=== PATIENT | female | born 1995 | race Caucasian/White ===

== ENCOUNTER 2020-03-17 22:03 | Emergency (ER) | payer OTHER ==
[~2020-03-17] VITALS: Ht 157.5 cm; Wt 95.3 kg
[2020-03-17] MEDS ORDERED: FOLIC ACID1 MG PO (22:13)
[2020-03-17] MEDS ORDERED: METHOTREXATE 22.5 M1 PO (22:14)
[2020-03-17] MEDS ORDERED: SERTRALINE HCL100 MG PO (22:14)
[2020-03-17] MEDS ORDERED: HYDROXYZINE HCL25 M2 (22:15)
[2020-03-17] MEDS ORDERED: TRAZODONE HCL100 MG PO (22:15)
[2020-03-17] MEDS ORDERED: EPIPEN0.3 MG/0.1 IM (22:15)
[2020-03-17 23:08] LABS: URINE BILIRUBIN NEGATIVE (Negative); URINE BLOOD NEGATIVE (Negative); URINE CLARITY CLEAR; URINE COLOR YELLOW; URINE GLUCOSE-RANDOM* NEGATIVE (Negative); URINE KETONES NEGATIVE (Negative); URINE LEUKOCYTES-REFLEX NEGATIVE (Negative); URINE NITRITE-REFLEX NEGATIVE (Negative); URINE PROTEIN (DIPSTICK) NEGATIVE (Negative); URINE UROBILINOGEN 0.2 E.U./dl (0.2-1.0)
[2020-03-17 23:08] LABS: BASOPHILS 0.6 % (0.0-2.0); EOSINOPHILS 1.5 % (0.0-3.0); HEMATOCRIT 41.1 % (37.0-47.0); HEMOGLOBIN 13.5 gm/dL (12.0-15.0); LYMPHOCYTES 28.1 % (24.0-44.0); MCH 26.1 pg (26.0-34.0); MCHC 32.8 g/dL (28.0-37.0); MCV 79.5 fL (80.0-100.0); MONOCYTES 5.3 % (1.0-8.0); PLATELET COUNT 393 thou/uL (150-400); POLYS 64.5 % (36.0-66.0); RBC 5.17 mil/uL (4.20-5.00); RDW 15.2 % (10.5-14.5); WBC 15.5 thou/uL (4.0-11.0)
[2020-03-17 23:11] LABS: CALCIUM 8.9 mg/dL (8.5-10.1); CREATININE 1.2 mg/dL (0.6-1.0)
[2020-03-17 23:22] LABS: TOTAL BILIRUBIN 0.2 mg/dL (0.2-1.0); TOTAL PROTEIN 7.9 g/dL (6.4-8.2)
[2020-03-18] MEDS ORDERED: TRAMADOL 50 MG50 MG PO (00:21)
[2020-03-18] MEDS ORDERED: ONDANSETRON ODT8 MG PO ×2 (00:25→00:40)
[2020-03-18 00:42] VITALS: BP 107/77
== END 2020-03-18 00:45 | disposition home or self-care (01) ==
LOC: ER 22:03
PROVIDERS: Emergency Medicine
DX: K59.00 Constipation, unspecified (principal); R10.12 Left upper quadrant pain; Z91.013 Allergy to seafood; Z79.899 Other long term (current) drug therapy